=== PATIENT | male | born 1960 | race Caucasian/White ===

== ENCOUNTER 2018-11-23 09:17 | Inpatient (IN) | payer OTHER ==
[~2018-11-23] VITALS: Ht 172.7 cm; Wt 59.0 kg
[2018-11-23 09:28] VITALS: BP 125/79
[2018-11-23] MEDS ORDERED: CHLORDIAZEPOXID10 MG PO (09:47)
[2018-11-23] MEDS ORDERED: RITALIN20 MG PO (09:47)
[2018-11-23 09:48] LABS: HEMATOCRIT 37.4 % (42.0-52.0); HEMOGLOBIN 13.1 gm/dL (14.0-18.0); MCHC 34.9 g/dL (28.0-37.0); MCV 106.1 fL (80.0-100.0); PLATELET COUNT 160 thou/uL (150-400); RBC 3.52 mil/uL (4.50-6.00); RDW 14.4 % (10.5-14.5); WBC 7.8 thou/uL (4.0-11.0)
[2018-11-23 10:03] LABS: APTT 26.9 Seconds (24.5-32.8)
[2018-11-23 10:06] LABS: ALBUMIN 2.7 g/dL (3.4-5.0); ANION GAP 10 mmol/L (7-16); BUN 10 mg/dL (7-18); CALCIUM 10.4 mg/dL (8.5-10.1); CHLORIDE 95 mmol/L (98-107); CO2 30 mmol/L (21-32); CREATININE 0.8 mg/dL (0.7-1.3); GLUCOSE 120 mg/dL (74-106); LIPASE 1146 U/L (73-393); SGOT 88 U/L (15-37); SGPT 64 U/L (30-65); SODIUM 135 mmol/L (136-145); TOTAL BILIRUBIN 0.8 mg/dL (<0.1-1.0); TOTAL PROTEIN 6.8 g/dL (6.4-8.2); TROPONIN-I <0.06 ng/mL (<0.06)
[2018-11-23 10:08] LABS: POTASSIUM 2.3 mmol/L (3.5-5.1)
[2018-11-23 10:13] LABS: ABSOLUTE NEUTROPHILS 5.4 thou/uL (1.4-8.2); PLATELET ESTIMATE NORMAL
[2018-11-23 10:30] LABS: URINE BILIRUBIN NEGATIVE (Negative); URINE BLOOD NEGATIVE (Negative); URINE CLARITY CLEAR; URINE COLOR YELLOW; URINE GLUCOSE-RANDOM* NEGATIVE (Negative); URINE KETONES NEGATIVE (Negative); URINE LEUKOCYTES-REFLEX TRACE (Negative); URINE NITRITE-REFLEX NEGATIVE (Negative); URINE PROTEIN (DIPSTICK) NEGATIVE (Negative); URINE SPECIFIC GRAVITY <= 1.005 (1.005-1.035); URINE UROBILINOGEN 0.2 E.U./dl (0.2-1.0)
[2018-11-23 10:39] LABS: AMP/METHAMP Negative (Negative); BARBITURATES Negative (Negative); BENZODIAZEPINES POSITIVE (Negative); COCAINE Negative (Negative); METHADONE Negative (Negative); OPIATES Negative (Negative); PCP Negative (Negative)
[2018-11-23 15:57] VITALS: BP 110/80
[2018-11-23 16:11] VITALS: BP 110/81
[2018-11-23 16:45] VITALS: BP 126/80
[2018-11-23 19:55] LABS: ABSOLUTE NEUTROPHILS 5.4 thou/uL (1.4-8.2); BASOPHILS 0.5 % (0.0-2.0); EOSINOPHILS 2.3 % (0.0-3.0); HEMATOCRIT 35.5 % (42.0-52.0); HEMOGLOBIN 12.3 gm/dL (14.0-18.0); LYMPHOCYTES 15.3 % (24.0-44.0); MCH 37.2 pg (26.0-34.0); MCHC 34.8 g/dL (28.0-37.0); MCV 107.1 fL (80.0-100.0); MONOCYTES 10.3 % (1.0-8.0); PLATELET COUNT 125 thou/uL (150-400); POLYS 71.6 % (36.0-66.0); RBC 3.31 mil/uL (4.50-6.00); RDW 14.6 % (10.5-14.5); WBC 7.6 thou/uL (4.0-11.0)
[2018-11-23 20:07] LABS: PHOSPHORUS 1.8 mg/dL (2.5-4.9)
[2018-11-23 20:35] LABS: FOLIC ACID 2.2 ng/mL (8.6-58.9)
[2018-11-23 20:42] VITALS: BP 121/86
[2018-11-23 22:27] LABS: URINE BILIRUBIN NEGATIVE (Negative); URINE BLOOD NEGATIVE (Negative); URINE CLARITY CLEAR; URINE COLOR YELLOW; URINE GLUCOSE-RANDOM* NEGATIVE (Negative); URINE KETONES NEGATIVE (Negative); URINE LEUKOCYTES NEGATIVE (Negative); URINE NITRITE NEGATIVE (Negative); URINE PROTEIN (DIPSTICK) NEGATIVE (Negative); URINE UROBILINOGEN 0.2 E.U./dl (0.2-1.0)
[2018-11-24] VITALS: BP 132/66
[2018-11-24 04:29] VITALS: BP 134/72
[2018-11-24 05:36] LABS: HEMATOCRIT 33.5 % (42.0-52.0); HEMOGLOBIN 11.9 gm/dL (14.0-18.0); MCH 37.7 pg (26.0-34.0); MCHC 35.4 g/dL (28.0-37.0); MCV 106.3 fL (80.0-100.0); RBC 3.15 mil/uL (4.50-6.00); RDW 14.4 % (10.5-14.5); WBC 8.8 thou/uL (4.0-11.0)
[2018-11-24 05:45] LABS: CREATININE 0.8 mg/dL (0.7-1.3)
[2018-11-24 05:48] LABS: POTASSIUM 2.7 mmol/L (3.5-5.1)
[2018-11-24 07:57] VITALS: BP 107/74
--- NOTE | 2018-11-24 11:47 | NUR ---
ASSUMED CARE AT 0700, SHIFT ASSESSMENT DONE, MEDS GIVEN, NPO SINCE LAST NIGHT. SCHEDULED FOR EGD THIS AM. POTTASIUM AND MAGNESIUM WAS LOW, REPLACING PER ELECTROLYTE PROTOCOL. ON ROOM AIR, REPORTED SOME PAIN IN THE BOTTOM, ASKING FOR LIDOCAINE PATCH, DR MAC NOTIFIED, WAITING FOR ORDER. LEFT FOR EGD AT 1100 AM. WILL CONTINUE TO ASSESS AND ASSIST WITH ADLs NEEDED.
[2018-11-24 15:31] VITALS: BP 113/81
--- NOTE | 2018-11-24 16:08 | NUR ---
INITIAL ASSESSMENT: Pt evaluated for d/c planning needs. Reviewed chart and spoke with nurse, pt and spouse. Pt is alert and oriented. Pt recently retired from [employer] and apparently went to [facility] for 2 months. Pt lives in house with spouse and was independent with ADL's prior to admission to the hospital. Pt uses no DME and has not had home health in the past. Pt has history of alcohol abuse. Pt plans on returning home on d/c from hospital. Will remain available to assist as needed.
--- NOTE | 2018-11-24 17:21 | NUR ---
CAME BACK FROM EGD AT 1300, VSS, DENIES ANY PAIN, NAUSEA, VOMITING. STARTED ON A REGUALR DIET, TOLERATING WELL. HAD SOME VISIBLE TREMORS, PRN ATIVAN GIVEN. POTTASIUM AND MAGNESIUM REPLACEMENT CHECK SCHEDULED FOR 1729. WILL CONTINUE TO ASSESS AND ASSIST WITH ADLs NEEDED.
[2018-11-24 17:44] LABS: MAGNESIUM 1.8 mg/dL (1.8-2.4)
[2018-11-24 17:45] LABS: POTASSIUM 2.8 mmol/L (3.5-5.1)
--- NOTE | 2018-11-24 18:19 | EKG ---
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 : 1960 Requested By: Marshall Busby Order Number: [id number] MD: Kings Simmons Measurements Intervals [place] Rate: 86 P: 75 OH: 150 QRS: -83 QRSD: 135 T: 36 QT: 398 QTc: 476 Interpretive Statements Sinus rhythm RBBB and LAFB No previous ECG available for comparison Electronically Signed On 11-24-2018 18:19:03 CDT by Kings Simmons [email or web address] ��������������������������������������������� <ELECTRONICALLY SIGNED> ���������������������������������������� By: Kings Simmons MD, [facility] ��������������������������������������������� 11/24/18 1819 1003 1003 Kings Simmons MD, FACC /EPI
[2018-11-24 20:45] VITALS: BP 117/79
--- NOTE | 2018-11-24 23:49 | NUR ---
PATIENTS CARES WERE ASSUMED AT SHIFT CHANGE. PATIENT WAS ASSESSED AND MEDS WERE PASSED. PATIENT REQUESTED THE NURSE TO HIS ROOM AT APPROX 2030 AND HE HAD PULLED OUT HIS IV IN HIS LEFT AC. PATIENT WAS CLEANED UP AND A CLEAN DRESSING WAS APPLIED. THE PATIENT HAD BLOOD ON HIS SHEEETS AND BEDDING. ALL CLEANED AND PATIENTS IV WAS CONTINUED IN HIS RIGHT AC. PATIENT C/O POTASSIUM BURNIG. IVF AND k+ WAS RUNNING CONCURRENTLY TO HELP REDUCE THE STING. PATIENT C/O BURNING AGAIN AND K+ WAS TURNED DOWN TO 35ML/HR. AT 2340 HIS CAME FOR HIM. HE DID SIGN THE AMA PAPER WORK. NURSE OFFERED A WHEELCHAIR AND PATIENT REFUSED. PATIENT WAS OFF THE UNITE AT 2348.
--- NOTE | 2018-11-26 11:05 | HC ---
[facility] [place] [address] CONSULTATION Name: KENDALL MARTNI Room #: 205-P [facility] IN ..#: [id number] Admission: 11/23/18 ������������������ Attend Phys: Adriel Cordova MD Discharge: 11/24/18 ������������������ Date of : 64 Report #: [id number] THIS REPORT FOR: //name// CC: Adriel Cordova NEUROLOGY CONSULT HISTORY OF PRESENT ILLNESS: The patient is a 58-year-old male who was admitted to the hospital for frequent falls. Apparently, the patient has a history of alcoholism. He admitted to me that he drinks 1.7 liters of Bacardi every 4 days. The patient recently retired and for 2 months, was on [employer]. A few days before leaving, he began to feel ill with some type of GI side effects. He states that he and his ate the local food. While he was on vacation, he tried to stop drinking, but he began to throw up. The patient was asked to come to the Emergency Room. The patient states he has been falling, every time he turns he falls down. He states that he does not have a spinning sensation. He has no ear pain or ringing in his ears, but sudden movement makes him fall. He denies any numbness or tingling in his feet. He does not have weakness in his arms or legs. PAST MEDICAL HISTORY: Alcoholism, depression, insomnia. PAST SURGICAL HISTORY: Unremarkable. MEDICATIONS: None. ALLERGIES: BEE STINGS. PHYSICAL EXAMINATION: VITAL SIGNS: Temperature 37.2, pulse rate 75, respiratory rate 20, blood pressure 107/74, bedside pulse oximetry 98%. NEUROLOGIC: Cranial nerves 2-12 are grossly intact. Motor exam demonstrates symmetrical strength in all 4 extremities with tone and bulk normal. Reflexes are trace throughout. Plantar responses are flexor. Coordination reveals intact [id number], although the patient does have some tremor with rsmdpn-lc-gnrb testing. Sensory exam demonstrates intact light touch. Proprioception was diminished at the great toes. LABORATORY WORK: Hematology: White blood cell count 8.8, hemoglobin 11.9, hematocrit 33.5, MCV 106.3. Chemistry: Sodium 136, potassium 2.7, chloride 99, carbon dioxide 31, BUN 6, creatinine 0.8, glucose 93, magnesium 1, phosphorus 1.8, total bilirubin 0.8, GGT 295, AST 88, ALT 64, alkaline phosphatase 96, ammonia 28. IMAGING DATA: CT scan of the head unremarkable. CT lumbar spine shows minimal L3-L4 spondylolysis. [address] [address] CONSULTATION Name: KENDALL MARTIN Room #: 205-P [facility]#: [id number] Admission: 11/23/18 ������������������ Attend Phys: Adriel Cordova MD Discharge: 11/24/18 ������������������ Date of : 64 Report #: [id number] IMPRESSION: This patient may have peripheral neuropathy. This would certainly affect his balance, but this would have to be tested for as an outpatient. In the meantime, I would recommend an MRI of the head with and without contrast, particularly to evaluate the cerebellum. The patient is currently here for alcohol withdrawal and is receiving lorazepam. Obviously, this can affect his balance while he was here, but he tells me he was taking no medication prior to admission. I explained to the patient that I would like to order an MRI of the head, but he told me that he does not want any testing done without Dr. Cordova's approval. Therefore, the nurse will call Dr. Cordova to see if we can go ahead with the MRI head. I thank you for your kind referral of the patient and will continue to follow him with you. ��������������������������������������������� <ELECTRONICALLY SIGNED> ���������������������������������������� By: Simin Holloway DO ��������������������������������������������� 11/26/18 1105 1400 1619 Simin Holloway DO /nt
--- NOTE | 2018-11-26 13:52 | D ---
[facility] [place] [address] DISCHARGE SUMMARY Name: KENDALL MARTIN Room #: 205-P [facility] IN .R.#: [id number] Admission: 11/23/18 ������������������ Attend Phys: Adriel Cordova MD Discharge: 11/24/18 ������������������ Date of : 64 Report #: [id number] THIS REPORT FOR: //name// CC: Adriel Cordova DATE OF SERVICE: 11/25/2018 SUMMARY OF HISTORY AND PHYSICAL: The patient presented to the Emergency Room with perhaps a 2-month long period of vomiting and being unable to keep food down. In the Emergency Room, he was found to have an elevated lipase suggestive of pancreatitis and to be dehydrated. As part of that evaluation, it was also revealed that he had been having episodes of weakness and falling that he described as "just losing all the blood to his brain and his body" that occurred when he was standing or walking. Admission was indicated for further evaluation. SUMMARY OF HOSPITAL COURSE: He was admitted and placed on intravenous fluids and intravenous pantoprazole. He was seen in GI consultation and underwent an EGD by Dr. Hernandez on 11/24/2018 that showed a small healing Queenie-[place] tear in the distal esophagus, normal esophagus otherwise, no evidence of fresh or old blood in the entire visualized upper GI tract, normal duodenum and mild antral gastritis that was biopsied. With the treatment with pantoprazole, and by later that day, he was eating and drinking well without nausea or vomiting. Because of his history of falling, he was seen in neurology consultation by Dr. Holloway. Dr. Holloway found an abnormality on his neurological examination, that of proprioception being diminished in the great toes. It was her concern that he might have peripheral neuropathy that "certainly would affect his balance" that could also be due to alcohol toxicity. She recommended an MRI of his brain with and without contrast, with attention to the cerebellum, and the report was that the MRI was normal with the exception of a solitary 4 mm. white matter lesion in the right frontal periventricular region without associated vasogenic edema or enhancement. The cerebellum was not specifically mentioned. Examination showed a deep right ischial buttock contusion, that was painful and from one of his falls . I reviewed some of his findings with the patient and his in the afternoon after his EGD. She had said "[please] don't just say it's all from alcohol" She was present for the EGD, and Dr. Hernandez discussed the findings with her. The patient also told me, that afternoon, that he was not able to get up and walk around freely, indicating that he needed more evaluation or time in the hospital. [address] [address] DISCHARGE SUMMARY Name: KENDALL MARTIN Room #: 205-P [facility] IN .R.#: [id number] Admission: 11/23/18 ������������������ Attend Phys: Adriel Cordova MD Discharge: 11/24/18 ������������������ Date of : 64 Report #: [id number] That evening, he reported to the nurse that he had pain in his IV that was receiving IV potassium. He had removed that IV, and there was blood all over everywhere, the nurse noted. The potassium was switched to another IV site that remained, the rate was slowed, and he was cleaned up -- this was at 2030 hours. At 2340, he had called his , who came to the hospital and took him home at his request. He insisted on leaving, he did not give the nurse specific reason, he was cooperative and signed the "leaving AMA " paper forms and then left. He did not have medication prescriptions. LABORATORY DATA: His potassium on admission was 2.3, sodium 135, magnesium 1.0 and albumin 2.7. He was placed on the electrolyte protocol, but left against medical advice before potassium was completely replaced, with his discharge potassium being 2.8. His magnesium was replaced with the discharge magnesium of 1.8. LIVER AND ALCOHOL RELATED LABORATORY DATA: His lipase was 1146 on admission and 1187 morning before discharge. AST was 88, ALT was 64, total bilirubin 0.8, alkaline phosphatase 96, GGTP was 295, total protein was 6.8 and albumin was 2.7 (qualifying for severe malnutrition). Ammonia level was normal at 28. Alcohol level on admission was 34, and the patient indicated that he had some alcohol to drink before coming to the hospital. His protime was 10.0 and INR normal at 1.0. Rapid drug screen was positive for benzodiazepines and marijuana, confirmation tests were not able to be performed prior to his leaving. On admission, his WBCs were 7800, hemoglobin was 13.1, MCV was 106.1. His differential was normal except for low lymphocytes at 19%. After rehydration, his hemoglobin dropped to 11.9. Free T4 was normal at 0.9. T3 total normal at 119, TSH normal at 2.402, vitamin B12 normal at 511 and folate was low at 2.2 (8.6 -- 58.9). Urinalysis was negative. Type and screen showed him to have A positive blood. Biopsy report on the gastritis from the EGD is pending. CT scan of the head without contrast, CT of the facial bones, CT of the cervical spine and CT of the lumbar spine were all normal with the following exceptions: There was mild mucosal thickening of the left maxillary sinus, moderate degenerative changes from C5 through C7 and calcified atherosclerosis present on the lumbar spine with minimal L3-L4 spondylosis. MRI of the head is reviewed above, the cerebellum was not specifically [facility] [address] [place] [address] DISCHARGE SUMMARY Name: MARTINKENDALL Bello Room #: 205-P DIS IN M.R.#: [id number] Admission: 11/23/18 ������������������ Attend Phys: Adriel Cordova MD Discharge: 11/24/18 ������������������ Date of : 64 Report #: [id number] mentioned, there was a solitary 4 mm white matter lesion in the right frontal periventricular area that was nonspecific. DISCHARGE DIAGNOSES: 1. Nausea, vomiting, weight loss and failure to thrive, unifying single explanation for this would be continued drinking of alcohol. 2. Severe malnutrition with an albumin of 2.7 on admission. 3. Chronically elevated lipase, felt not to be active pancreatitis by the GI Service. 4. Folate deficiency. 5. Painfull right ischial buttock contusion on examination. 6. Possible early peripheral neuropathy with decreased proprioception found on the neurologist examination. 7. 4 mm solitary right frontal white matter lesion found on MRI scanning. 8. Hypokalemia that was not completely replaced at the time the patient chose to leave. 9. Mild antral gastritis on exam on EGD -- biopsies pending. 10. Mild anemia. 11. Mild left maxillary sinus thickening. 12. Mild degenerative cervical spine disease C5 through C6. 13. Mild spondylosis of L3 and L4. 14. Calcified atherosclerosis of the arteries shown on the lumbar spine. 15. Generalized weakness and balance disturbance. 16. Other medical problems as mentioned on the history and physical. 17. Hx of ADD, on ritalin PLAN: 1. The patient left against medical advice. 2. Pantoprazole 40 mg once daily in the morning for the gastritis. 3. Folate 1 mg daily for replacement. 4. vitamins. 5. Outpatient neurology examination to reexamine the MRI, attention to the cerebellum, balance and evaluation for possible neuropathy -- there was some mild tremor also noted on the neurologist's examination. 6. Potassium replacement 20 meq daily for a month then d/c. 7. Physical therapy for balance and strengthening. 8. Recommendation for complete abstinence from alcohol. ��������������������������������������������� <ELECTRONICALLY SIGNED> ���������������������������������������� By: Adriel Cordova MD ��������������������������������������������� 11/26/18 1352 1012 1057 Adriel Cordova MD /nt
--- NOTE | 2018-11-26 13:57 | H ---
[facility] [place] [address] HISTORY AND PHYSICAL Name: KENDALL MARTIN Room #: 205-P [facility] IN M.R.#: [id number] Admission: 11/23/18 ������������������ Attend Phys: Adriel Cordova MD Discharge: 11/24/18 ������������������ Date of : 64 Report #: [id number] THIS REPORT FOR: //name// CC: Adriel Cordova DATE OF SERVICE: 11/23/2018 CHIEF COMPLAINT: Vomiting, weakness, falls. HISTORY OF PRESENT ILLNESS: The patient called my office after not having been seen for 5 years, asking for an appointment because he had been vomiting and unable to keep anything down for 2 months. He was recommended he come to the Emergency Room where he was found to have pancreatitis and be dehydrated. As part of that evaluation, it also was revealed that he has been having episodes of weakness and falls that he describes as just losing all the blood to his brain and his body if he is standing up, or walking. He has a long history of alcoholism and recently quit or retired from a long-term job at [employer]. He and his went on vacation to [facility] for the last 2 months, at which time he is drinking more heavily and eating less and reports a significant weight loss. He has had emesis, hematemesis and black stools during these last 2 months. He drinks alcohol heavily. He had a colonoscopy in the distant past, but has never had an EGD. He describes his falls is occurring after he stands up and walks across the room or stands up in one spot for a while. He had a colonoscopy in 2004, he most likely has sleep apnea, insomnia, depression, hypertension with excesses of caffeine, long history of alcoholism, he says he currently also smokes marijuana. He reports he uses alcohol now instead of street drugs. He reports a 20-pound weight loss, most in the last several months, and this corroborates our records. He has a history of ADD as well past history of marijuana and drug abuse in the distant past. A sleep study was done here at [facility] on 09/23/2006, specific results are not available at this time. REVIEW OF SYSTEMS: HEENT: Remarkable for "head medley" when he gets up and walks across the room. Negative, other than a left "black eye" he attributes to the impact of his eye glasses when he hit the floor. CARDIOVASCULAR: No chest pain. [facility] [address] [place] [address] HISTORY AND PHYSICAL Name: KENDALL MARTIN Bello Room #: 205-P [facility] IN .R.#: [id number] Admission: 11/23/18 ������������������ Attend Phys: Adriel Cordova MD Discharge: 11/24/18 ������������������ Date of : 64 Report #: [id number] RESPIRATORY: He denies shortness of breath or chest pain. GASTROINTESTINAL: He does have abdominal discomfort and at times he has persistent nausea, vomiting and weakness. As in the HPI above. GENITOURINARY: He denies dysuria or frequency. As in the HPI above. MUSCULOSKELETAL: He denies musculoskeletal complaints other than pain in the right hip. He just is weak. He does report pain in the right buttock area that is exquisite. MEDICATIONS: Methylphenidate 20 mg 3 times daily for ADD. Chlordiazepoxide 10 mg 3 times a day. ALLERGIES: None known to medications, HE IS ALLERGIC TO BEE STINGS. SOCIAL HISTORY: He is . He uses recreational drugs. He uses alcohol and tobacco with recreational drug use as well. OBJECTIVE: GENERAL: Shows a shaky male, appearing his stated age of 58. SKIN: Appears dry. VITAL SIGNS: Blood pressure is 125/76, temperature 36.8, pulse 66 and respiration 16. HEENT: PERRLA. Significant for some left orbital rim contusions from when he fell several days ago and hit his entire face on the table. The oropharynx is normal except mucosa is dry. NECK: Negative. LUNGS: Clear. CARDIOVASCULAR: Heart tones are normal and regular. ABDOMEN: Soft, nontender, without hepatosplenomegaly or masses. GENITOURINARY: Deferred. EXTREMITIES: There is no clubbing, cyanosis or edema. NEUROLOGIC: There are no focal neurological deficits. BACK: On exam over the ischial tuberosity on the right buttocks, there is a deep subcutaneous 4 x 4 cm easily palpable area consistent with a contusion. This palpation here reproduces his severe back pain. LABORATORY DATA: His potassium is low at 2.3. His magnesium is low at 1.0. His albumin is low at 2.7. His alcohol level is 34 and he reports having some alcoholic drink this morning before coming to the hospital. Rapid drug screen is negative for amphetamine/methamphetamines, but positive for benzodiazepines and marijuana. Hemoglobin is low at 13.1, his MCV is high at 106.1. ASSESSMENT: 1. Nausea and vomiting and gastrointestinal distress. 2. Weight loss by his own history of 20 pounds in the last 2 months, and my [facility] [address] [place] [address] HISTORY AND PHYSICAL Name: KENDALL MARTIN Room #: 205-P [facility] IN M.R.#: [id number] Admission: 11/23/18 ������������������ Attend Phys: Adriel Cordova MD Discharge: 11/24/18 ������������������ Date of : 64 Report #: [id number] office records show a weight loss of about 30 pounds in the last 5 years. 3. Volume depletion with electrolyte abnormalities. 4. Right buttocks ischial tuberosity contusion. 5. Elevated lipase consistent with pancreatitis. 6. Low albumin of 2.7 is consistent with severe malnutrition. 7. Orthostatic blood pressure drop leading to episodes of syncope and falling. PLAN: He has been seen in consultation by the GI Department and an EGD is scheduled for tomorrow morning. He is starting electrolyte replacement as well as IV fluid replacement. An EGD will be performed in the morning. His lab will be repeated. We will ask psychiatrist to evaluate him as well. ��������������������������������������������� <ELECTRONICALLY SIGNED> ���������������������������������������� By: Adriel Cordova MD ��������������������������������������������� 11/26/18 1357 11 17 Adriel Cordova MD /nt
--- NOTE | 2018-11-26 14:06 | PATH ---
[facility] [address] [place] [address] PATHOLOGY RPT PROCEDURE Name: KENDALL ESCOBEDO Room #: 205-P DIS IN M.R.#: [id number] ������������������ Admission: 11/23/18 ������������������ Date of : 64 Discharge: 11/24/18 Report #: [id number] Path Case #: [id number] [facility] Accession Number: [id number] . 01 Material submitted: . stomach - BX OF GASTRITIS TO R/O H. PYLORI . 01 Clinical history: . R/O H pylori . 02 Diagnosis: Stomach, biopsy: - Chronic superficial gastritis, mild. - No evidence of Helicobacter pylori on immunoperoxidase stain. (SKM:pit; 11/26/2018) QTP/11/26/2018 . 02 Electronically signed: . Deonte Smith MD, Pathologist NPI- [id number] . 01 Gross description: . The specimen is received in formalin, labeled "Kendall Escobedo, biopsy of gastritis to R/O H. pylori". Received are seven segments of pale renee soft tissue ranging in size from 0.3 to 0.7 cm in maximum dimensions. The specimen is submitted entirely in cassette A1. (CAA; 11/25/2018) QAC/QAC . 02 Pathologist provided ICD-10: K29.30 . 02 CPT . 496735 Specimen Comment: A courtesy copy of this report has been sent to Specimen Comment: [phone], . Specimen Comment: Report sent to / DR MAC Performed at: [address], [place], [place] [id number] MD Rashel Lewis MD Phone: [phone] Performed at: [address] [id number] MD Leola Pritchett MD Phone: [phone]
== END 2018-11-24 23:48 | disposition left against medical advice (07) | DRG 368 ==
LOC: ER 09:17 → 2N 10:50 → EROBS 10:50 → 2N 16:48
PROVIDERS: Emergency Medicine; Nurse Practitioner; ADMIT Internal Medicine
PROC: 0DB68ZX Excision of Stomach, Via Natural or Artificial Opening Endoscopic, Diagnostic (ICD-10-PCS; principal; 2018-11-24)
DX: K22.6 Gastro-esophageal laceration-hemorrhage syndrome (principal); K85.90 Acute pancreatitis without necrosis or infection, unspecified; Z68.1 Body mass index [BMI] 19.9 or less, adult; I10 Essential (primary) hypertension; F32.9 Major depressive disorder, single episode, unspecified; G47.00 Insomnia, unspecified; F10.20 Alcohol dependence, uncomplicated; K30 Functional dyspepsia; R63.4 Abnormal weight loss; E86.9 Volume depletion, unspecified; S30.0XXA Contusion of lower back and pelvis, initial encounter; D53.9 Nutritional anemia, unspecified; K29.51 Unspecified chronic gastritis with bleeding; F19.10 Other psychoactive substance abuse, uncomplicated; G62.9 Polyneuropathy, unspecified; Z91.018 Allergy to other foods; Z23 Encounter for immunization; W18.39XA Other fall on same level, initial encounter; Y93.89 Activity, other specified; Y92.89 Other specified places as the place of occurrence of the external cause; Y99.8 Other external cause status; Z79.899 Other long term (current) drug therapy; Z53.21 Procedure and treatment not carried out due to patient leaving prior to being seen by health care provider
CPT/HCPCS: 10081; 62110; 62900; 70005